=== PATIENT | male | born 1945 | race Caucasian/White ===

== ENCOUNTER 2017-01-03 06:49 | Day surgery (SDC) | payer OTHER ==
--- NOTE | ~2017-01-03 | EGD ---
EGD REPORT [facility] [address] [address] NAME: ANYI LIPSCOMB : [birth year] STATUS : REG [facility] [place]#: [id number] AGE: 71 ADM/REG DATE : 01/03/17 MR#: [id number] REPORT SERV DATE: 01/03/17 DICTATED BY: AZRA FELIPE DATE: 01/03/17 REPORT STATUS : Draft TRANSCRIBED BY: [employer] DATE: 01/03/17 [facility] Patient Name: Anyi Lipscomb Date of : 1945 Attending MD: ISAAC FELIPE MD Procedure Date No Time: 01/03/2017 Procedure: Upper GI endoscopy Referring MD: ADAM JIMÉNEZ MD Medicines: See the Anesthesia note for documentation of the administered medications Complications: No immediate complications. Estimated blood loss: Minimal. Procedure: Pre-Anesthesia Assessment: - ASA Grade Assessment: III - A patient with severe systemic disease. - Prior to the procedure, a History and Physical was performed, and patient medications and allergies were reviewed. The patient's tolerance of previous anesthesia was also reviewed. The risks and benefits of the procedure and the sedation options and risks were discussed with the patient. All questions were answered, and informed consent was obtained. Prior Anticoagulants: The patient has taken aspirin, last dose was 1 day prior to procedure. After reviewing the risks and benefits, the patient was deemed in satisfactory condition to undergo the procedure. After obtaining informed consent, the endoscope was passed under direct vision. Throughout the procedure, the patient's blood pressure, pulse, and oxygen saturations were monitored continuously. The GIF [id number] was introduced through the mouth, and advanced to the second part of duodenum. The upper GI endoscopy was accomplished without difficulty. The patient tolerated the procedure well. Findings: The examined duodenum was normal. The entire examined stomach was normal. Biopsies were taken with a cold forceps for histology. The cardia and gastric fundus were normal on retroflexion. Diffuse mild erythema was found at the gastroesophageal junction. This was biopsied with a cold forceps for histology. No other significant abnormalities were identified in a careful examination of the esophagus. EGD REPORT [address] [address] NAME: ANYI LIPSCOMB : [birth year] STATUS : REG [facility]#: [id number] AGE: 71 ADM/REG DATE : 01/03/17 MR#: [id number] REPORT SERV DATE: 01/03/17 DICTATED BY: AZRA FELIPE DATE: 01/03/17 REPORT STATUS : Draft TRANSCRIBED BY: [employer] DATE: 01/03/17 Impression: - Normal examined duodenum. - Normal stomach. Biopsied. - Erythema at the gastroesophageal junction. Biopsied. Recommendation: - Patient has a contact number available for emergencies. The signs and symptoms of potential delayed complications were discussed with the patient. Return to normal activities tomorrow. Written discharge instructions were provided to the patient. - Regular diet. - Discharge patient to home. - Continue present medications. - Await pathology results. Procedure Code(s): --- Professional --- 44663, Esophagogastroduodenoscopy, flexible, transoral; with biopsy, single or multiple Diagnosis Code(s): --- Professional --- K22.9, Disease of esophagus, unspecified CPT copyright 2013 [employer]. All rights reserved. The codes documented in this report are preliminary and upon medical operations supervisor review may be revised to meet current compliance requirements. ISAAC FELIPE MD 01/03/2017 9:13 AM This report has been signed electronically. Number of Addenda: 0 Note Initiated On: 01/03/2017 8:54 AM Scope Withdrawal Time 0 hours 0 minutes 0 seconds [address] [place] [id number]
[~2017-01-03 06:49] MED LIST: ASAB PO; BETIMOL0.5 % OPH; CALTRA600D PO; COQ-10200 MG OR; COQ-10200 MG PO; EFFIENT10 PO; GLUCCHONDR PO; GLUCPH PO; ISTALOL0.5 % OP; KLOR-CON M2020 MEQ PO; L40 PO; LIPITOR40 PO; NITROSTAT0.4 MG SL; NTG150 SL; PRADAXA150 MG PO; PRILOSEC OTC20 MG PO; SUPER B COMP PO; SURBEX-T1 TAB PO; TIMOLOL MAL0.5 % OPH; TOPXL100 PO; TOPXL50 PO; ZOCOR40 PO
== END 2017-01-03 23:59 | disposition home or self-care (01) ==
LOC: DMU 06:49
PROVIDERS: Internal Medicine Gastroenterology
PROC: 0DB48ZX Excision of Esophagogastric Junction, Via Natural or Artificial Opening Endoscopic, Diagnostic (ICD-10-PCS; 2017-01-03)
PROC: 0DB68ZX Excision of Stomach, Via Natural or Artificial Opening Endoscopic, Diagnostic (ICD-10-PCS; principal; 2017-01-03 09:00)
DX: K29.50 Unspecified chronic gastritis without bleeding (principal); K21.0 Gastro-esophageal reflux disease with esophagitis; I25.10 Atherosclerotic heart disease of native coronary artery without angina pectoris; I48.91 Unspecified atrial fibrillation; I10 Essential (primary) hypertension; I48.92 Unspecified atrial flutter; E11.9 Type 2 diabetes mellitus without complications; M19.90 Unspecified osteoarthritis, unspecified site; E78.00 Pure hypercholesterolemia, unspecified; Z79.82 Long term (current) use of aspirin; Z79.84 Long term (current) use of oral hypoglycemic drugs; Z79.899 Other long term (current) drug therapy; Z87.891 Personal history of nicotine dependence; Z98.890 Other specified postprocedural states
CPT/HCPCS: 82962; 88305